=== PATIENT | female | born 1970 | race Caucasian/White ===

== ENCOUNTER 2024-03-23 13:18 | Inpatient (IN) | payer BC, SELFPAY ==
[2024-03-23 13:35] VITALS: BP 134/83; PULSE 92; RESP 18; TEMP 36.6; O2SAT 96; BMI 24.4
--- NOTE | 2024-03-23 14:01 | ED.GENADULT ---
HPI - General Adult General Time Seen by Provider: 14:02 Date Seen: 03/23/24 Chief complaint: Unspecified Complaint, Adult Stated complaint: medication reaction Time Seen by Provider: 03/23/24 13:20 Source: patient and RN notes reviewed Mode of arrival: ambulatory Limitations: no limitations History of Present Illness HPI narrative: this 53-year-old female comes in very dramatic and concerned that her kidneys might be failing, she states she took too much venlafaxine. The story has changed between what nursing staff was reported to and what she is saying to me from nursing staff's perspective. She told them that the pharmacy had mistakenly filled her gabapentin with venlafaxine. She does admit that she has had both of these medicines at home. Our nursing staff did contact the pharmacy, she did last picker her gabapentin, 900 mg at night. She states that she took about 3 tablets of the venlafaxine at night which she thought was her gabapentin, took 2 more, this was all around 1:00 a.m.. She made a statement that she was withdrawing being off the gabapentin. She does have venlafaxine with her, oxacarbazepine as well as Vistaril in her purse. She does not have any bottles gabapentin. The fill date on the venlafaxine was in January, most of the bottle is there. She states there was another bottle this at home though. Nursing staff did call poison Control, they did recommend basic metabolic panel and EKG. Patient does report around 3:00 a.m. she did wake up and felt sick to her stomach with nausea and vomiting. She is quite dramatic, states she is worried she has room to her kidneys, wonders if I will treat her anxiety. We had discussion that I will give her solitary dose of oral Ativan. We will not use IV, this is an exceptional circumstance and she will not get this option on repeat visits here. She states she was seen in [facility] ER overnight, did call the ambulance but admits that she pissed people off. Related Data Home Medications ?Medication ?Instructions ?Recorded ?Confirmed gabapentin 900 mg tablet,extended 900 mg PO QPM 03/23/24 03/23/24 release 24 hr oxcarbazepine 150 mg tablet 150 mg PO BID 03/23/24 03/23/24 Allergies Allergy/AdvReac Type Severity Reaction Status Date / Time No Known Drug Allergies Allergy Verified 03/23/24 13:50 Review of Systems Status of ROS: Reports: 6 or more systems reviewed and unremarkable except as noted in History and below Exam Const: Vital Signs, click to edit/add: Vital Signs - 24 hr 03/23/24 13:35 Temperature 97.9 F Pulse Rate [Right Pulse Oximeter] 92 Respiratory Rate 18 Blood Pressure [Ri ght Upper Arm] 134/83 Pulse Oximetry 96 Oxygen Delivery Me thod Room Air Patient is disheveled, has a robe and onofre son but nothing else on the upper body. She seems agitated but is still pleasant with me. She is redirectable, speech is sometimes pressured. Pupils are equal round, sclera clear, extraocular muscles intact, no nystagmus, sclera clear. Symmetrical facial function. CV regular rate and rhythm, no murmur, normal S1-S2, no S3-S4. Abdomen is soft, no rebound or guarding, organomegaly, nontender. She is moving all extremities, does move around a lot when lying on the bed. Documenting provider has reviewed patient's vital signs: yes Course Course ED Course: It is certainly possible that this patient may have taken venlafaxine mistakenly substituting it for her gabapentin. I do wonder if maybe she is inappropriately using her gabapentin and has none left. In any event, will get an EKG and basic labs on her to ensure no concerns for ingestion from the venlafaxine. She is out of window of concern, if these look stable, can discharge to home Per poison control. Will continue to monitor her here. Have also ordered urine drug screen. Reevaluation(s) Time of Reevaluation #1: 15:32 Reevaluation #1: Patient's sodium is currently 126, will confirm with the lab redraw. It was 135 when done in the ER sometime earlier this morning at [place] [id number]. Time of Reevaluation #2: 16:28 Reevaluation #2: Reviewed with Brandee that her sodium and potassium are low. She admits that she has drank a lot of water today. She states she went home from the ER in [place] this morning and admits drinking lot of water. She does admit to using a small amount of cocaine recently as well. Vital Signs Vital signs: Initial Vital Signs Temperature 97.9 F 03/23/24 13:35 Temperature Source Temporal Artery Scan 03/23/24 13:35 Pulse Rate 92 03/23/24 13:35 Respiratory Rate 18 03/23/24 13:35 Blood Pressure 134/83 03/23/24 13:35 Blood Pressure Mean 100 03/23/24 13:35 Blood Pressure Position Sitting 03/23/24 13:35 Pulse Oximetry 96 03/23/24 13:35 Oxygen Delivery Method Room Air 03/23/24 13:35 Vital Signs Temperature 97.9 F 03/23/24 13:35 Pulse Rate 92 03/23/24 13:35 Respiratory Rate 18 03/23/24 13:35 Blood Pressure 134/83 03/23/24 13:35 Pulse Oximetry 96 03/23/24 13:35 Oxygen Delivery Method Room Air 03/23/24 13:35 Temperature 97.9 F 03/23/24 13:35 Pulse Rate 92 03/23/24 13:35 Respiratory Rate 18 03/23/24 13:35 Blood Pressure 134/83 03/23/24 13:35 Pulse Oximetry 96 03/23/24 13:35 Oxygen Delivery Method Room Air 03/23/24 13:35 Medications Administered Medications: Generic Name Dose Route Start Last Admin Trade Name Freq PRN Reason Stop Dose Admin Potassium Chloride/Sodium Chloride 1,000 mls @ 75 mls/hr 03/23/24 15:27 03/23/24 15:40 0.9 % Sodium Ch + Kcl 20 Meq/L IV 75 mls/hr .[id number] MOUNA Administration Discontinued Medications Generic Name Dose Route Start Last Admin Trade Name Freq PRN Reason Stop Dose Admin Lorazepam 1 mg 03/23/24 15:47 03/23/24 15:56 Lorazepam 1 Mg Tablet PO 03/23/24 15:48 1 mg ONCE ONE Administration Medical Decision Making Medical Records Medical records reviewed: Yes I reviewed the patient's medical records Medical records narrative: Did pull her ER visit from earlier today. She has no underlying history of bipolar disorder, methamphetamine abuse. She was diagnosed with the UTI and was given Keflex in the ER. She did talk to social media project manager there in the ER regarding living concerns in discord with family members where she was staying. A friend reportedly picked her up from the ER. She also is noted to have polysubstance abuse in her records. Earlier in ED her sodium was 135, glucose 100, potassium was reportedly normal. Lab Data Lab results reviewed: Yes I reviewed the patient's lab results Labs: Lab Results 03/23/24 03/23/24 03/23/24 Range/Units 14:45 14:48 15:40 WBC 8.20 (4.50-11.00) K/uL RBC 4.14 (4.00-5.20) m/uL Hgb 12.7 (12.0-16.0) gm/dL Hct 35.8 (33.0-51.0) % MCV 87 (80-100) fL MCH 31 (26-34) pg MCHC 36 (32-36) gm/dL RDW Coeff of Olya 11.5 (11.5-15.5) % Plt Count 220 (140-440) K/uL Neut % (Auto) 83.6 H (42.0-72.0) % Lymph % (Auto) 10.2 L (20-44) % [place] % (Auto) 5.1 (0.0-11.0) % Eos % (Auto) 0.1 (0.0-7.0) % Baso % (Auto) 0.1 (0.0-3.0) % Neut # (Auto) 6.90 (1.7-7.0) K/uL Lymph # (Auto) 0.80 L (0.90-2.90) K/uL [place] # (Auto) 0.40 (0.00-0.90) K/UL Eos # (Auto) 0.01 (0.00-0.50) K/uL Baso # (Auto) 0.01 (0.00-0.30) K/uL Abs Immat Gran (auto) 0.07 (0.00-0.30) K/uL Imm/Tot Granulo (auto) 0.9 % Sodium 126 L 126 L (135-149) mmol/L Potassium 3.5 L 3.1 L (3.6-5.1) mmol/L Chloride 98 (96-114) mmol/L Carbon Dioxide 21 (20-32) mmol/L Anion Gap 7 (7-15) mEq/L BUN 8 (7-30) mg/dL Creatinine 0.5 (0.5-1.5) mg/dL Estimated Creat Clear 139.11 Estimated GFR 113 ml/min Glucose 105 (60-115) mg/dL Calcium 8.4 (8.4-10.6) mg/dL Total Bilirubin 0.6 (0.1-1.5) mg/dL AST 24 (12-35) U/L ALT 15 (4-35) U/L Alkaline Phosphatase 59 (40-150) U/L Total Protein 6.5 (6.0-8.3) g/dL Albumin 4.1 (3.3-5.0) g/dL Urine Opiates Screen Negative (Negative) Ur Oxycodone Screen Negative (Negative) Urine Methadone Screen Negative (Negative) Ur Barbiturates Screen Negative (Negative) U Tricyclic Antidepress Negative (Negative) Ur Phencyclidine Scrn Negative (Negative) Ur Amphetamines Screen POSITIVE A (Negative) U Methamphetamines Scrn Negative (Negative) U Benzodiazepines Scrn Negative (Negative) Urine Cocaine Screen POSITIVE A (Negative) U Marijuana (THC) Screen POSITIVE A (Negative) Ur Drug Screen Comment See Note ECG Data Attestation: I personally reviewed and interpreted this ECG as follows: ( Normal sinus rhythm, 73 beats per minute. No acute ischemic change. QT corrected 453 milliseconds.) Discharge Plan Discharge Clinical Impression: Acute hyponatremia, Acute hypokalemia, Cocaine use Patient Disposition: Admitted As Observation
[2024-03-23 14:10] VITALS: O2SAT 98
[2024-03-23 14:54] LABS: Basophils Absolute Auto 0.01 K/uL (0.00-0.30); Basophils Percent Auto 0.1 % (0.0-3.0); Eosinophils Absolute Auto 0.01 K/uL (0.00-0.50); Eosinophils Percent Auto 0.1 % (0.0-7.0); Hematocrit 35.8 % (33.0-51.0); Hemoglobin* 12.7 gm/dL (12.0-16.0); Immature Granulocytes Abs Auto 0.07 K/uL (0.00-0.30); Immature Granulocytes Pct Auto 0.9 %; Lymphocytes Percent Auto 10.2 % (20-44); Mean Corpuscular HGB Conc 36 gm/dL (32-36); Mean Corpuscular Hemoglobin 31 pg (26-34); Mean Corpuscular Volume 87 fL (80-100); Monocytes Percent Auto 5.1 % (0.0-11.0); Neutrophils Percent Auto 83.6 % (42.0-72.0); Platelet Count* 220 K/uL (140-440); RDW Coefficient of Variation % 11.5 % (11.5-15.5); Red Blood Count 4.14 m/uL (4.00-5.20)
[2024-03-23 15:04] LABS: Amphetamine Screen Urine POSITIVE (Negative); Barbiturate Screen Urine Negative (Negative); Benzodiazepines Screen Urine Negative (Negative); Cannabinoid Screen Urine POSITIVE (Negative); Cocaine Screen Urine POSITIVE (Negative); Methadone Screen Urine Negative (Negative); Methamphetamines Screen Urine Negative (Negative); Opiate Screen Urine Negative (Negative); Oxycodone Screen Urine Negative (Negative); Phencyclidine Screen Urine Negative (Negative); Tricyclic Antidepressant Urine Negative (Negative)
[2024-03-23 15:07] LABS: Albumin* 4.1 g/dL (3.3-5.0); Chloride* 98 mmol/L (96-114)
[2024-03-23 15:08] LABS: Potassium* 3.5 mmol/L (3.6-5.1); Sodium* 126 mmol/L (135-149)
[2024-03-23 15:10] LABS: Alkaline Phosphatase* 59 U/L (40-150); Anion Gap 7 mEq/L (7-15); Aspartate Amino Transferase* 24 U/L (12-35); Bilirubin Total* 0.6 mg/dL (0.1-1.5); Blood Urea Nitrogen* 8 mg/dL (7-30); Carbon Dioxide* 21 mmol/L (20-32); Creatinine* 0.5 mg/dL (0.5-1.5); Est. Creatinine Clearance* 139.11; Estimated Glomerular Filt Rate 113 ml/min; Total Protein* 6.5 g/dL (6.0-8.3)
[2024-03-23 15:11] LABS: Alanine Aminotransferase* 15 U/L (4-35); Calcium* 8.4 mg/dL (8.4-10.6); Glucose* 105 mg/dL (60-115)
[2024-03-23 15:18] LABS: Slide Review Reflex No
[2024-03-23] MEDS: 0.9 % SODIUM CH + KCL 20 mEq/L 1,000 ML 75 ML IV (15:40)
[2024-03-23] MEDS: LORazepam 1 MG TABLET PO (15:56)
[2024-03-23 16:16] LABS: Potassium* 3.1 mmol/L (3.6-5.1); Sodium* 126 mmol/L (135-149)
[2024-03-23 18:11] VITALS: RESP 18; O2SAT 97
--- NOTE | 2024-03-23 18:34 | P.IMHP_ITS ---
Hospitalist- H&P: HPI History of Present Illness Date Seen: 03/23/24 Chief complaint: medication reaction Narrative: Brandee Barfield is a 53 year old woman presented to our emergency department concerned that her kidneys might be failing. She states she was seen in the emergency department in [place], [place], around 3:00 a.m. this morning and after a urine analysis she was inform she likely has a urinary tract infection and was started on cephalexin 500 mg twice daily. She proceeded to drink a lot of water after leaving the [facility], concerned that she might get kidney failure she did not drink enough water because of a bladder infection. She also tells me that she believes she has been taking venlafaxine instead of her gabapentin at bedtime. She states she has 75 mg tabs and she has been taking 3 those tabs at bedtime instead of her 3 tablets of gabapentin 300 mg which she is actually prescribed to take. In the course of evaluating her in our emergency department her serum sodium is down to 126, whereas at 3:00 a.m. at the [facility] her serum sodium was 135. Acknowledges drinking several bottles of water since that time to try to prevent herself from having kidney failure. Review of Systems 2 Status of ROS: Reports: 6 or more systems reviewed and unremarkable except as noted in History and below Narrative: Had presented to the [facility] emergency department around 3:00 a.m. this morning with malaise, abdominal discomfort, possibly 8 dysuria. Acknowledges that she was outdoors much of the day and does not believe she drink enough water. Had a sense of feeling dizzy and maybe even feverish outside but never took her temperature. Denies drinking alcohol. Acknowledges having cocaine recently. Denies any other street or recreational drug use recently. Otherwise has not had fevers, rigors, diaphoresis. No diarrhea or constipation. No hematuria or urgency. No cellulitis or other skin concerns. No headache or neck stiffness. Denies cough, shortness of breath. Denies URI symptoms. [facility] Medical History (Updated 03/23/24 @ 18:53 by Esdras Pedraza MD) History of ectopic ?Z87.59 - Personal history of other complications of , childbirth and the puerperium (ICD-10) Social phobia ?F40.10 - Social phobia, unspecified (ICD-10) Restless leg syndrome ?G25.81 - Restless legs syndrome (ICD-10) Attention deficit disorder (ADD) without hyperactivity ?F98.8 - Other specified behavioral and emotional disorders with onset usually occurring in childhood and adolescence (ICD-10) Chronic pain ?G89.29 - Other chronic pain (ICD-10) Adjustment disorder with depressed mood ?F43.21 - Adjustment disorder with depressed mood (ICD-10) Lumbago without sciatica ?M54.50 - Low back pain, unspecified (ICD-10) Methamphetamine abuse ?F15.10 - Other stimulant abuse, uncomplicated (ICD-10) Bipolar disorder ?F31.9 - Bipolar disorder, unspecified (ICD-10) Depression with anxiety ?F41.8 - Other specified anxiety disorders (ICD-10) Surgical History (Updated 03/23/24 @ 18:16 by Esdras Pedraza MD) History of tonsillectomy and adenoidectomy ?Z90.89 - Acquired absence of other organs (ICD-10) Status post tubal ligation ?Z98.51 - Tubal ligation status (ICD-10) Status post breast augmentation ?Z98.82 - Breast implant status (ICD-10) Social History Smoking Status: Former smoker Do you use any of these nicotine containing products: None Second hand tobacco smoke exposure: No How often do you have a drink containing alcohol: never How often do you have six or more drinks on one occasion: Never AUDIT-C Alcohol total score: 0 Non-prescribed substance use: marijuana (any form), crack/cocaine and amphetamines/methamphetamines service: No Meds Home Medications and Allergies Home Medications ?Medication ?Instructions ?Recorded ?Confirmed ?Type ammonium lactate 12 % topical cream 1 applic topical BID 03/23/24 03/23/24 History cephalexin 500 mg capsule 500 mg PO BID 03/23/24 03/23/24 History estradiol 2 mg tablet 2 mg PO DAILY 03/23/24 03/23/24 History gabapentin 300 mg capsule 900 mg PO HS 03/23/24 03/23/24 History oxcarbazepine 300 mg tablet 300 mg PO BID 03/23/24 03/23/24 History progesterone micronized 100 mg 100 mg PO QPM 03/23/24 03/23/24 History capsule Allergies Allergy/AdvReac Type Severity Reaction Status Date / Time No Known Drug Allergies Allergy Verified 03/23/24 13:50 Exam Narrative: Exam Narrative: Exam patient emergency department. She is hyperactive. Has pressured speech. Is redirectable. Cooperative and friendly. Alert, oriented to self, place, time, even to situation. External auditory canals and tympanic membranes are normal. Midline nasal septum. Dentition in good repair. Moist buccal mucosa. Conjugate gaze. No nystagmus. Midline trachea. Normal thyroid. Supple neck. No head neck lymphadenopathy. Lungs are clear to auscultation without wheezing, rhonchi, or rales. Chest wall excursions are full. No CVA tenderness. Heart tones with regular rhythm, normal S1-S2, without murmur, gallop, rub. PMI is not laterally displaced. Abdomen with active bowel sounds, soft, nontender. No organomegaly or masses. No rebound or guarding. Extremities without edema. Palpable pulses upper and lower extremities. Moves all 4 extremities. Cranial nerves 3-12 grossly normal. No focal motor neurologic deficits. No tremor, asterixis, or ataxia. Const: Vital Signs, click to edit/add: Vital Signs - 24 hr 03/23/24 13:35 03/23/24 14:10 Temperature 97.9 F Pulse Rate [Right Pulse Oximeter] 92 Respiratory Rate 18 Blood Pressure [Ri ght Upper Arm] 134/83 Pulse Oximetry 96 98 Oxygen Delivery Me thod Room Air Hospitalist - H&P: Result Labs Labs: Short CBC 03/23/24 Range/Units 14:48 WBC 8.20 (4.50-11.00) K/uL Hgb 12.7 (12.0-16.0) gm/dL Hct 35.8 (33.0-51.0) % Plt Count 220 (140-440) K/uL BMP 03/23/24 03/23/24 14:48 15:40 Sodium 126 L 126 L Potassium 3.5 L 3.1 L Chloride 98 Carbon Dioxide 21 BUN 8 Creatinine 0.5 Glucose 105 Calcium 8.4 Liver Function 03/23/24 Range/Units 14:48 Total Bilirubin 0.6 (0.1-1.5) mg/dL AST 24 (12-35) U/L ALT 15 (4-35) U/L Alkaline Phosphatase 59 (40-150) U/L Albumin 4.1 (3.3-5.0) g/dL Assessment and Plan Assessment and plan (1) Acute hypokalemia: Problem comment: -03/23/24 @ 1540: K 3.1 -most likely delusional to excessive water intake today, in part related to underlying christi -potassium supplementation and monitor Status: Acute (2) Acute hyponatremia: Problem comment: - 03/23/24 @ 0300: Na 135 - 03/23/24 @ 1540: Na 126 - Drank large volumes of water today because of concern that she might get kidney failure from a bladder infection - most likely due to water intoxication from overzealous consumption of water - normal saline IV fluids, oral fluid restriction, continue to monitor Status: Acute (3) Christi: Problem comment: - Underlying bipolar disorder, but also known to abuse street drugs and possibly also prescription medications - will try to resume her usual medications and monitor - consider use of hydroxyzine if needed Status: Acute (4) Bipolar disorder: Problem comment: - Claims to have been inadvertently taking her prescription of venlafaxine instead of gabapentin recently Status: Acute (5) Polypharmacy: Problem comment: - confusing her medications - may need assistance with medication dispensation Status: Acute (6) Acute cystitis: Problem comment: - was started on cephalexin this morning at the ED in [place], [place], for presumed UTI - continue with oral cephalexin as prescribed earlier today Status: Acute (7) Cocaine use: Problem comment: - recent use Status: Acute Plan 1. Reviewed impression and plans with patient 2. Answered her questions to her satisfaction 3. patient agreeable with above stated plans and recommendations Total Time Spent Total Time Spent: 60 minutes
[2024-03-23 18:40] VITALS: BP 145/90; PULSE 78; RESP 18; O2SAT 97; BMI 28.1
[2024-03-23 19:00] VITALS: BP 118/78; PULSE 77; RESP 16; TEMP 36.6; O2SAT 97
[2024-03-23 19:16] LABS: Lactate* 0.6 mmol/L (0.5-1.9)
[2024-03-23 19:36] LABS: Albumin* 3.7 g/dL (3.3-5.0); Chloride* 96 mmol/L (96-114); Sodium* 126 mmol/L (135-149)
[2024-03-23 19:37] LABS: Potassium* 3.2 mmol/L (3.6-5.1)
[2024-03-23 19:39] LABS: Anion Gap 5 mEq/L (7-15); Carbon Dioxide* 25 mmol/L (20-32); Creatinine* 0.5 mg/dL (0.5-1.5); Est. Creatinine Clearance* 139.11; Estimated Glomerular Filt Rate 113 ml/min
[2024-03-23 19:40] LABS: Blood Urea Nitrogen* 6 mg/dL (7-30); Calcium* 7.8 mg/dL (8.4-10.6); Glucose* 138 mg/dL (60-115); Magnesium* 1.9 mg/dL (1.5-2.6); Phosphorus* 3.1 mg/dL (2.5-4.5)
--- NOTE | 2024-03-23 19:46 | PC.NURSE ---
Pt is cooperative with admission questions and assessment. Admits to marijuana and cocaine use for pain control but denies meth use. Pt states marijuana nightly and cocaine 1-3 times/wk with sig. other. Spoke with Sig. other, Raúl Haq, and he was concerned about possible meth use due to her acting crazy the last few days, he also denies using or knowing that pt has used cocaine. Mr. Haq was concerned about her home medication mix up and possible withdrawal of missed Gabapentin.
[2024-03-23] MEDS: OXcarbazepine 300 MG TABLET PO (21:56)
[2024-03-23] MEDS: cephALEXin 500 MG CAPSULE PO (21:56)
[2024-03-23] MEDS: NICOTINE 21 MG PATCH 1 PATCH TRANSDERMA (21:56)
[2024-03-23] MEDS: GABAPENTIN 300 MG CAPSULE 900 MG PO (21:56)
[2024-03-23 23:00] VITALS: BP 130/83; PULSE 76; RESP 18; TEMP 36.5; O2SAT 97
[2024-03-23] MEDS: POTASSIUM CHLORIDE 10 MEQ CAPSULE ER 40 MEQ PO (23:14)
[2024-03-24 03:00] VITALS: BP 137/98; PULSE 80; RESP 16; TEMP 36.8; O2SAT 95
[2024-03-24] MEDS: 0.9 % SODIUM CH + KCL 20 mEq/L 1,000 ML 75 ML IV (04:48)
[2024-03-24 05:04] LABS: Appearance Urine Clear (Clear); Bilirubin Urine Negative (Negative); Blood Urine Negative (Negative); Color Urine Amber (Yellow); Glucose Urine Negative (Negative); Ketones Urine Negative (Negative); Leukocyte Esterase Urine Negative (Negative); Nitrite Urine Negative (Negative); Protein Urine Negative (Negative); Specific Gravity Urine >= 1.030 (1.000-1.030); Urobilinogen Urine 0.2 (0.2-1.0); pH Urine 6.5 (5.0-8.5)
[2024-03-24 05:11] LABS: RBC Urine 0-2 (0-2); Squamous Epithelial Cell Urine Many (None-Few); WBC Urine 0-2 (0-5)
[2024-03-24 05:35] LABS: Amphetamine Screen Urine POSITIVE (Negative); Barbiturate Screen Urine Negative (Negative); Benzodiazepines Screen Urine POSITIVE (Negative); Cannabinoid Screen Urine POSITIVE (Negative); Cocaine Screen Urine POSITIVE (Negative); Methadone Screen Urine Negative (Negative); Methamphetamines Screen Urine POSITIVE (Negative); Opiate Screen Urine Negative (Negative); Oxycodone Screen Urine Negative (Negative); Phencyclidine Screen Urine Negative (Negative); Tricyclic Antidepressant Urine Negative (Negative)
[2024-03-24 06:09] LABS: HCO3 VBG 24 mmol/L (21-28); Lactate* 0.7 mmol/L (0.5-1.9); PCO2 VBG 39 mmHG (40-50); PO2 VBG 57.6 mmHG (25-47); pH VBG 7.407 (7.32-7.43)
--- NOTE | 2024-03-24 06:18 | PC.NURSE ---
Pt is alert and oriented x3. Pt slept for most of the shift after not sleeping for an extended period of time. Pt remained afebrile throughout the shit. Pt denied SOB, chest pain, nausea, and pain. Pt is independent. Pt is tolerating fluid restriction well. Fluids running @ 75 mL. Urine output is small, yellow, and with a sour odor. ?
[2024-03-24 06:22] LABS: Hematocrit 34.9 % (33.0-51.0); Hemoglobin* 12.3 gm/dL (12.0-16.0); Mean Corpuscular HGB Conc 35 gm/dL (32-36); Mean Corpuscular Hemoglobin 31 pg (26-34); Mean Corpuscular Volume 88 fL (80-100); Platelet Count* 217 K/uL (140-440); Red Blood Count 3.98 m/uL (4.00-5.20); White Blood Count* 5.95 K/uL (4.50-11.00)
[2024-03-24 06:25] LABS: Slide Review Reflex No
[2024-03-24 07:00] LABS: Chloride* 100 mmol/L (96-114); Potassium* 3.6 mmol/L (3.6-5.1); Sodium* 127 mmol/L (135-149)
[2024-03-24 07:03] LABS: Anion Gap 6 mEq/L (7-15); Carbon Dioxide* 21 mmol/L (20-32); Creatinine* 0.5 mg/dL (0.5-1.5); Est. Creatinine Clearance* 139.11; Estimated Glomerular Filt Rate 113 ml/min
[2024-03-24 07:04] LABS: Blood Urea Nitrogen* 7 mg/dL (7-30); Calcium* 7.8 mg/dL (8.4-10.6); Glucose* 108 mg/dL (60-115)
[2024-03-24 08:05] VITALS: BP 136/91; PULSE 81; RESP 18; TEMP 36.7; O2SAT 93
[2024-03-24 08:08] VITALS: PULSE 81; RESP 18; O2SAT 93
[2024-03-24] MEDS: OXcarbazepine 300 MG TABLET PO (08:43)
[2024-03-24] MEDS: cephALEXin 500 MG CAPSULE PO (08:43)
[2024-03-24] MEDS: SODIUM CHLORIDE 0.9 % (FLUSH) 10 ML SYRINGE 5 ML IVF (08:45)
--- NOTE | 2024-03-24 09:11 | P.DS_ITS ---
DS: Providers Provider Date Seen: 04/15/24 Date of admission: 03/23/24 18:40 Primary care physician: Not a Local Provider Admitting Clinician: Esdras Pedraza MD Attending Physician on discharge: Zahraa Rodriges MD Date of Discharge: 03/24/24 DS: Diagnosis Discharge Diagnosis (1) Acute hypokalemia: Status: Acute Problem details: -03/23/24 @ 1540: K 3.1 -most likely delusional to excessive water intake today, in part related to underlying kermit -potassium supplementation and monitor, normalized on hospital day 1 (2) Acute hyponatremia: Status: Acute Problem details: - 03/23/24 @ 0300: Na 135 - 03/23/24 @ 1540: Na 126 - Drank large volumes of water today because of concern that she might get kidney failure from a bladder infection - most likely due to water intoxication from overzealous consumption of water - normal saline IV fluids, oral fluid restriction, continue to monitor - improved to 127 on hospital day 1, eating and drinking normally and requesting d/c home (3) Kermit: Status: Acute Problem details: - Underlying bipolar disorder, but also known to abuse street drugs and possibly also prescription medications - will try to resume her usual medications and monitor - consider use of hydroxyzine if needed - back to baseline on 03/24 and requesting d/c home (4) Bipolar disorder: Status: Acute Problem details: - Claims to have been inadvertently taking her prescription of venlafaxine instead of gabapentin recently - much improved on hospital day 1 (5) Polypharmacy: Status: Acute Problem details: - noted to be confusing home medications upon admission, 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 She had been diagnosed with UTI at an outside hospital prior to arrival; she had been pushing fluids but not able to urinate. In the ER, found to have hypokalemia and acute hyponatremia with a sodium of 126 (sodium was notably 135 the day before); admitted for IV fluids and monitoring. Upon admission, it was discovered that she had likely been taking thrice her prescribed dose of Effexor, confusing at with her home dose of gabapentin. There was concern for mild serotonin syndrome, which resolved during stay. Drug screen also noted to be positive for THC, cocaine, and methamphetamine; patient does admit history of drug abuse and understands the risks associated with this. On hospital day 1, patient's sodium was 127, and she was feeling comfortable with p.o. intake. She was requesting discharge home. Given the acuity of her hyponatremia, she does not need to remain hospitalized for monitoring, and she was appropriate for discharge home with close PCP follow-up. Time Spent with Patient Time attestation: Total time spent providing and/or coordinating discharge services: Time spent: Greater than 30 minutes Exam Narrative: Exam Narrative: GEN: Alert and oriented, nontoxic HEENT: PERRL and EOMIs bilaterally, tongue protrudes midline CV: RRR, No concerning murmurs R: LCTA bilaterally, air movement adequate Ext: wwp, no concerning edema Skin: No concerning skin lesions or rashes on exposed skin Neuro: No focal deficits Psych: Mildly pressured speech, otherwise appropriate Const: Vital Signs, click to edit/add: Vital Signs - 24 hr 03/23/24 13:35 03/23/24 14:10 03/23/24 18:11 Temperature 97.9 F Pulse Rate [Pulse Oximeter] Pulse Rate [Right Pulse Oximeter] 92 Respiratory Rate 18 18 Blood Pressure [Le ft Arm] Blood Pressure [Ri ght Upper Arm] 134/83 Pulse Oximetry 96 98 97 Oxygen Delivery Me thod Room Air Room Air 03/23/24 18:40 03/23/24 19:00 03/23/24 23:00 Temperature 98 F Pulse Rate [Pulse Oximeter] 78 77 Pulse Rate [Right Pulse Oximeter] Respiratory Rate 18 16 Blood Pressure [Le ft Arm] 145/90 H 118/78 Blood Pressure [Ri ght Upper Arm] Pulse Oximetry 97 97 Oxygen Delivery Me thod Room Air Room Air Room Air 03/23/24 23:00 03/24/24 03:00 03/24/24 08:05 Temperature 97.7 F 98.3 F 98.1 F Pulse Rate [Pulse Oximeter] 76 80 81 Pulse Rate [Right Pulse Oximeter] Respiratory Rate 18 16 18 Blood Pressure [Le ft Arm] 130/83 137/98 H 136/91 H Blood Pressure [Ri ght Upper Arm] Pulse Oximetry 97 95 93 Oxygen Delivery Me thod Room Air Room Air Room Air 03/24/24 08:08 03/24/24 08:08 Temperature Pulse Rate [Pulse Oximeter] 81 Pulse Rate [Right Pulse Oximeter] Respiratory Rate 18 18 Blood Pressure [Le ft Arm] Blood Pressure [Ri ght Upper Arm] Pulse Oximetry 93 Oxygen Delivery Me thod Room Air DS: Data Data Completed and Pending Labs on day of discharge: Labs from last 24 hours 03/24/24 03/24/24 03/23/24 05:59 04:51 19:11 WBC 5.95 RBC 3.98 L Hgb 12.3 Hct 34.9 MCV 88 MCH 31 MCHC 35 RDW Coeff of Olya Plt Count 217 Neut % (Auto) Lymph % (Auto) [place] % (Auto) Eos % (Auto) Baso % (Auto) Neut # (Auto) Lymph # (Auto) [place] # (Auto) Eos # (Auto) Baso # (Auto) Abs Immat Gran (auto) Imm/Tot Granulo (auto) VBG pH 7.407 VBG pCO2 39 L VBG pO2 57.6 H VBG HCO3 24 Sodium 127 L Potassium 3.6 Chloride 100 Carbon Dioxide 21 Anion Gap 6 L BUN 7 Creatinine 0.5 Estimated Creat Clear 139.11 Estimated GFR 113 Glucose 108 Lactate 0.7 0.6 Calcium 7.8 L Phosphorus Magnesium Total Bilirubin AST ALT Alkaline Phosphatase Total Protein Albumin TSH 3.340 Urine Color Navya A Urine Appearance Clear Urine pH 6.5 Ur Specific [place] >= 1.030 Urine Protein Negative Urine Glucose (UA) Negative Urine Ketones Negative Urine Blood Negative Urine Nitrite Negative Urine Bilirubin Negative Urine Urobilinogen 0.2 Ur Leukocyte Esterase Negative Urine RBC 0-2 Urine WBC 0-2 Ur Squamous Epith Cells Many A Urine Bacteria None Urine Opiates Screen Negative Ur Oxycodone Screen Negative Urine Methadone Screen Negative Ur Barbiturates Screen Negative U Tricyclic Antidepress Negative Ur Phencyclidine Scrn Negative Ur Amphetamines Screen POSITIVE A U Methamphetamines Scrn POSITIVE A U Benzodiazepines Scrn POSITIVE A Urine Cocaine Screen POSITIVE A U Marijuana (THC) Screen POSITIVE A Ur Drug Screen Comment See Note 03/23/24 03/23/24 03/23/24 19:00 15:40 14:48 WBC 8.20 RBC 4.14 Hgb 12.7 Hct 35.8 MCV 87 MCH 31 MCHC 36 RDW Coeff of Olya 11.5 Plt Count 220 Neut % (Auto) 83.6 H Lymph % (Auto) 10.2 L [place] % (Auto) 5.1 Eos % (Auto) 0.1 Baso % (Auto) 0.1 Neut # (Auto) 6.90 Lymph # (Auto) 0.80 L [place] # (Auto) 0.40 Eos # (Auto) 0.01 Baso # (Auto) 0.01 Abs Immat Gran (auto) 0.07 Imm/Tot Granulo (auto) 0.9 VBG pH VBG pCO2 VBG pO2 VBG HCO3 Sodium 126 L 126 L 126 L Potassium 3.2 L 3.1 L 3.5 L Chloride 96 98 Carbon Dioxide 25 21 Anion Gap 5 L 7 BUN 6 L 8 Creatinine 0.5 0.5 Estimated Creat Clear 139.11 139.11 Estimated GFR 113 113 Glucose 138 H 105 Lactate Calcium 7.8 L 8.4 Phosphorus 3.1 Magnesium 1.9 Total Bilirubin 0.6 AST 24 ALT 15 Alkaline Phosphatase 59 Total Protein 6.5 Albumin 3.7 4.1 TSH Urine Color Urine Appearance Urine pH Ur Specific [place] Urine Protein Urine Glucose (UA) Urine Ketones Urine Blood Urine Nitrite Urine Bilirubin Urine Urobilinogen Ur Leukocyte Esterase Urine RBC Urine WBC Ur Squamous Epith Cells Urine Bacteria Urine Opiates Screen Ur Oxycodone Screen Urine Methadone Screen Ur Barbiturates Screen U Tricyclic Antidepress Ur Phencyclidine Scrn Ur Amphetamines Screen U Methamphetamines Scrn U Benzodiazepines Scrn Urine Cocaine Screen U Marijuana (THC) Screen Ur Drug Screen Comment 03/23/24 14:45 WBC RBC Hgb Hct MCV MCH MCHC RDW Coeff of Olya Plt Count Neut % (Auto) Lymph % (Auto) [place] % (Auto) Eos % (Auto) Baso % (Auto) Neut # (Auto) Lymph # (Auto) [place] # (Auto) Eos # (Auto) Baso # (Auto) Abs Immat Gran (auto) Imm/Tot Granulo (auto) VBG pH VBG pCO2 VBG pO2 VBG HCO3 Sodium Potassium Chloride Carbon Dioxide Anion Gap BUN Creatinine Estimated Creat Clear Estimated GFR Glucose Lactate Calcium Phosphorus Magnesium Total Bilirubin AST ALT Alkaline Phosphatase Total Protein Albumin TSH Urine Color Urine Appearance Urine pH Ur Specific [place] Urine Protein Urine Glucose (UA) Urine Ketones Urine Blood Urine Nitrite Urine Bilirubin Urine Urobilinogen Ur Leukocyte Esterase Urine RBC Urine WBC Ur Squamous Epith Cells Urine Bacteria Urine Opiates Screen Negative Ur Oxycodone Screen Negative Urine Methadone Screen Negative Ur Barbiturates Screen Negative U Tricyclic Antidepress Negative Ur Phencyclidine Scrn Negative Ur Amphetamines Screen POSITIVE A U Methamphetamines Scrn Negative U Benzodiazepines Scrn Negative Urine Cocaine Screen POSITIVE A U Marijuana (THC) Screen POSITIVE A Ur Drug Screen Comment See Note Discharge Plan Discharge Disposition: Home, Self-Care Date of Admission: 03/23/24 18:40 Attending Provider on Discharge: Zahraa Rodriges Primary Care Provider: Provider,Not a Local Condition: Improved Anticipated Discharge Date/Time: 03/24/24 10:43 Discharge Medications: Continued cephalexin 500 mg capsule 500 mg PO BID ammonium lactate 12 % cream 1 applic topical BID gabapentin 300 mg capsule 900 mg PO HS oxcarbazepine 300 mg tablet 300 mg PO BID estradiol 2 mg tablet 2 mg PO DAILY progesterone micronized 100 mg capsule 100 mg PO QPM Discharge Orders: Discharge Order (Routine); Ordered 03/24/24 Ordered By: Zahraa Rodriges Patient Education: Hyponatremia (DC) Additional Instructions: No changes to home medications, see your PCP later this week to discuss hospitalization, recheck your sodium, and make plans going forward. Activity Level: Activity as Tolerated Discharge Diet: Regular Follow Up Appointments: Provider,Not a Local [Primary Care Provider] - (Patient to make an appointment with PCP later this week for f/u) Forms: [employer] Info Instructions
[2024-03-24 11:30] VITALS: BP 135/82; PULSE 83; RESP 18; TEMP 36.8; O2SAT 96
--- NOTE | 2024-03-24 13:56 | PC.NURSE ---
Discharge: Patient pleasant and cooperative, A&O. VSS, afebrile. Patient denies pain this shift. IV removed with tip intact. Discharge instructions provided, all questions answered. Discharged to home.
== END 2024-03-24 13:30 | disposition home or self-care (01) | DRG 425 ==
LOC: ED 16:33 → MEDSURG 17:11
PROVIDERS: Admitting Provider Internal Medicine; Emergency Provider Family Medicine; Visit Provider Internal Medicine
DX: E87.1 Hypo-osmolality and hyponatremia (principal); E87.6 Hypokalemia; E87.79 Other fluid overload; F31.2 Bipolar disorder, current episode manic severe with psychotic features; N30.00 Acute cystitis without hematuria; Z79.899 Other long term (current) drug therapy; F14.90 Cocaine use, unspecified, uncomplicated; F15.10 Other stimulant abuse, uncomplicated; F40.10 Social phobia, unspecified; F98.8 Other specified behavioral and emotional disorders with onset usually occurring in childhood and adolescence; F43.21 Adjustment disorder with depressed mood; F41.8 Other specified anxiety disorders; G25.81 Restless legs syndrome; G89.29 Other chronic pain; F12.90 Cannabis use, unspecified, uncomplicated; F19.10 Other psychoactive substance abuse, uncomplicated
CPT/HCPCS: 36415; 80048; 80053; 80069; 80306; 81001; 82803; 83605; 83735; 84132; 84295; 84443; 85025; 85027; 93005; 94761; 99284; 99285; A9270; S4990